=== PATIENT | male | born 1935 ===

== ENCOUNTER 2024-12-13 14:00 | Inpatient (IN) | payer OTHER ==
[~2024-12-13] VITALS: Ht 177.8 cm; Wt 84.8 kg
[2024-12-13 14:48] LABS: BASOPHILS ABSOLUTE AUTO 0.07 K/mm3 (0.00-0.23); BASOPHILS PERCENT AUTO 0 % (0-2); EOSINOPHILS PERCENT AUTO 0 % (0-6); Hematocrit 41.7 % (37.0-53.0); IMMATURE GRAN ABSOLUTE AUTO 0.18 K/mm3 (0.00-0.10); IMMATURE GRAN PERCENT AUTO 1 % (0-1); LYMPHOCYTES ABSOLUTE AUTO 0.63 K/mm3 (0.84-5.20); LYMPHOCYTES PERCENT AUTO 3 % (21-46); MONOCYTES PERCENT AUTO 11 % (4-13); Mean Corpuscular HGB 35.8 pg (26.0-34.0); Mean Corpuscular HGB Conc 33.6 g/dL (31.5-36.5); Mean Corpuscular Volume 107 fL (80-100); NEUTROPHILS ABSOLUTE AUTO 17.12 K/mm3 (1.96-9.15); NEUTROPHILS PERCENT AUTO 85 % (41-73); NRBC ABSOLUTE 0.03 K/mm3 (0.00-0.02); NRBC Auto 0.1 /100 WBC (0.0-0.2); Platelet Count 68 K/mm3 (150-400); RDW Coefficient Variation 16.4 % (11.7-14.2); RDW Standard Deviation 62.1 fL (35.1-46.3); Red Blood Cell Count 3.91 M/mm3 (4.30-5.90)
[2024-12-13 15:07] LABS: Albumin, Blood 3.8 g/dL (3.4-5.0); Albumin/Globulin Ratio 1.3 (0.8-1.8); Bilirubin, Total 3.2 mg/dL (0.1-1.0); Bun/Creatinine Ratio 26.6 (12.0-20.0); Creatinine, Blood 2.48 mg/dL (0.60-1.20); Potassium, Blood 5.1 mmol/L (3.5-5.5); Total Protein, Blood 6.8 g/dL (6.4-8.2)
[2024-12-13] MEDS ORDERED: Mag Hydrox/AL Hydrox/Simeth 30 ML UDC PO ONE ×2 (16:15→16:30)
[2024-12-13] MEDS ORDERED: Ondansetron HCl 2 MG / ML 2ML Vial IV ONE (16:30)
[2024-12-13 16:31] LABS: CORONAVIRUS COVID-19 AG Negative (NEGATIVE); INFLUENZA A AG Negative (NEGATIVE); INFLUENZA B AG Negative (NEGATIVE)
[2024-12-13 16:37] LABS: Source, Urine Clean Catch
[2024-12-13 16:42] LABS: Appearance, Urine Hazy (Clear); Bilirubin, Urine Neg (Neg); Blood, Urine 2+ (Neg); Color, Urine Yellow (P-Yellow); Glucose Qualitative, Urine Neg (Neg); Ketones, Urine 1+ (Neg); Leukocyte Esterase, Urine 1+ (Neg); Nitrite, Urine Neg (Neg); Protein, Urine 2+ (Neg); Specific Gravity, Urine 1.025 (1.003-1.022); Urobilinogen, Urine 2+ (Normal)
[2024-12-13 16:50] LABS: Amorphous Mod (0-Heavy); Bacteria Many /hpf; Mucus Light (0-Heavy); Red Blood Cells, Urine 0-2 /hpf (0-2); Squamous Epithelial Cells Rare /hpf (Few)
[2024-12-13] MEDS ORDERED: BREZTRI AEROS10.7 GM (16:50)
[2024-12-13] MEDS ORDERED: LIDO700A20 TOP (16:51)
[2024-12-13] MEDS ORDERED: METO50 PO (16:51)
[2024-12-13] MEDS ORDERED: Spironolactone25 MG PO (16:52)
[2024-12-13] MEDS ORDERED: LOSA50 PO (16:52)
[2024-12-13] MEDS ORDERED: OXYB5 PO (16:53)
[2024-12-13] MEDS ORDERED: Synthroid200 MCG PO (16:53)
[2024-12-13] MEDS ORDERED: AMLO10 PO (16:54)
[2024-12-13] MEDS ORDERED: TRAZ50 PO (16:54)
[2024-12-13] MEDS ORDERED: ZOCOR20 MG PO (16:54)
[2024-12-13] MEDS ORDERED: LORA10ER PO (16:54)
[2024-12-13] MEDS ORDERED: ELIQUIS2.5 MG PO (16:55)
[2024-12-13] MEDS ORDERED: TAMS.4ER PO (16:55)
[2024-12-13] MEDS ORDERED: Aspir 8181 MG PO (16:55)
[2024-12-13] MEDS ORDERED: FURO20 (16:56)
[2024-12-13] MEDS ORDERED: CefTRIAXone Sodium 1,000 MG in NS 100 ML IV ONE (17:20)
[2024-12-13] MEDS ORDERED: Ondansetron HCl 2 MG / ML 2ML Vial IV PRN (20:25)
[2024-12-13] MEDS ORDERED: FLU VACC TS2024-25(6MOS UP)/PF 45 MCG/0.5 ML SYRINGE IM SCH (20:25)
[2024-12-13] MEDS ORDERED: NS 1,000 ML IV SCH (20:25)
[2024-12-13 22:24] VITALS: BP 125/87
[2024-12-13] MEDS ORDERED: Magnesium Hydroxide Conc 10 ML UDC PO PRN (23:10)
[2024-12-13] MEDS ORDERED: TraZODone HCl 50 MG Tab PO SCH (23:10)
[2024-12-13] MEDS ORDERED: Melatonin 5 MG Tablet PO SCH (23:10)
[2024-12-13] MEDS ORDERED: Bisacodyl 10 MG Supp PR PRN (23:10)
[2024-12-14 04:47] VITALS: BP 115/83
[2024-12-14] MEDS ORDERED: Levothyroxine Sodium 0.1 MG Tab PO SCH (06:00)
--- NOTE | 2024-12-14 06:11 | NUR ---
SHIFT SUMMARY PT A&OX4 AND ANSWERS QUESTIONS APPROPRIATELY. PT ARRIVED ON UNIT AT 2217 VIA GURNEY AND WAS TRANSFERRED VIA SLIDESHEET UNTO THE BED. PT ORIENTED TO ROOM AND UNIT. PT RECEIVED SCHEDULED MEDICATIONS WITH NO ADVERSE EFFECTS. PT VSS, PT IS TACHYCARDIAC, PT ON CONTINUOUS TELEMETRY AND RUNNING AFIB. NO COMPLAINTS OF CP/PRESSURE OR SOB. NO ACUTE EVENTS AT THIS TIME. PT SPENT MOST OF SHIFT IN BED WITH EYES CLOSED AND RESPIRATIONS EVEN AND UNLABORED. PT REPOSITIONED INDEPENDENTLY. FALL PRECAUTIONS IN PLACE AND CALL LIGHT IN REACH.
[2024-12-14 06:14] LABS: BASOPHILS ABSOLUTE AUTO 0.06 K/mm3 (0.00-0.23); BASOPHILS PERCENT AUTO 0 % (0-2); EOSINOPHILS ABSOLUTE AUTO 0.02 K/mm3 (0.00-0.68); EOSINOPHILS PERCENT AUTO 0 % (0-6); Hematocrit 38.3 % (37.0-53.0); Hemoglobin 12.8 g/dL (13.5-17.5); IMMATURE GRAN ABSOLUTE AUTO 0.13 K/mm3 (0.00-0.10); IMMATURE GRAN PERCENT AUTO 1 % (0-1); LYMPHOCYTES ABSOLUTE AUTO 1.08 K/mm3 (0.84-5.20); LYMPHOCYTES PERCENT AUTO 6 % (21-46); MONOCYTES ABSOLUTE AUTO 1.78 K/mm3 (0.16-1.47); MONOCYTES PERCENT AUTO 9 % (4-13); Mean Corpuscular HGB 35.4 pg (26.0-34.0); Mean Corpuscular HGB Conc 33.4 g/dL (31.5-36.5); Mean Corpuscular Volume 106 fL (80-100); NEUTROPHILS ABSOLUTE AUTO 16.02 K/mm3 (1.96-9.15); NEUTROPHILS PERCENT AUTO 84 % (41-73); NRBC ABSOLUTE 0.03 K/mm3 (0.00-0.02); NRBC Auto 0.2 /100 WBC (0.0-0.2); Platelet Count 53 K/mm3 (150-400); RDW Standard Deviation 61.3 fL (35.1-46.3); Red Blood Cell Count 3.62 M/mm3 (4.30-5.90); White Blood Cell Count 19.09 K/mm3 (4.00-11.30)
[2024-12-14 06:39] LABS: Albumin, Blood 3.3 g/dL (3.4-5.0); Albumin/Globulin Ratio 1.4 (0.8-1.8); Bilirubin, Total 1.7 mg/dL (0.1-1.0); Calcium, Blood 9.5 mg/dL (8.5-10.1); Creatinine, Blood 2.56 mg/dL (0.60-1.20); Globulin, Blood 2.4 g/dL (2.2-4.0); Potassium, Blood 4.5 mmol/L (3.5-5.5); Total Protein, Blood 5.7 g/dL (6.4-8.2)
[2024-12-14 07:33] VITALS: BP 135/88
[2024-12-14] MEDS ORDERED: Lactated Ringer's 1,000 ML IV SCH (08:35)
[2024-12-14] MEDS ORDERED: Misc. Inhaler INH SCH (09:00)
[2024-12-14] MEDS ORDERED: Furosemide 20 MG Tab PO SCH (09:00)
[2024-12-14] MEDS ORDERED: Metoprolol Tartrate 25 MG Tab PO SCH (09:00)
[2024-12-14] MEDS ORDERED: Sennosides 8.6 MG Tab PO SCH (09:00)
[2024-12-14] MEDS ORDERED: Docusate Sodium 100 MG Cap PO SCH (09:00)
[2024-12-14] MEDS ORDERED: Apixaban 5 MG Tab PO SCH (09:00)
[2024-12-14] MEDS ORDERED: Aspirin 81 MG TabEC PO SCH (09:00)
[2024-12-14 15:30] VITALS: BP 119/70
[2024-12-14] MEDS ORDERED: Furosemide 10 MG / ML 2ML Vial IV ONE (17:00)
[2024-12-14 20:17] VITALS: BP 106/57
[2024-12-14] MEDS ORDERED: Tamsulosin HCl 0.4 MG Cap PO SCH (21:00)
[2024-12-14] MEDS ORDERED: CefTRIAXone Sodium 1,000 MG in NS 100 ML IV SCH (21:00)
--- NOTE | 2024-12-15 01:03 | NUR ---
Pt de-sated to 72 w/o cpap on. Nurse advised. Pt alert and oriented.
[2024-12-15 03:45] VITALS: BP 112/87
--- NOTE | 2024-12-15 05:28 | NUR ---
SHIFT SUMMARY A&0 x3, forgetful to situation , VSS, Continuous oximetry and sats were wdl until sleeping soundly then dropped into mid 80s , 02 applied at 2l/m via NC until RT arrived to place bipap-sats came up quickly -wore bipap approx 3 hrs until up to void then wanted bipap off due to runny nose, back on room air this morning and 02 sats in mid 90s
[2024-12-15 06:13] LABS: BASOPHILS ABSOLUTE AUTO 0.06 K/mm3 (0.00-0.23); BASOPHILS PERCENT AUTO 0 % (0-2); EOSINOPHILS ABSOLUTE AUTO 0.35 K/mm3 (0.00-0.68); EOSINOPHILS PERCENT AUTO 3 % (0-6); Hematocrit 38.6 % (37.0-53.0); Hemoglobin 12.8 g/dL (13.5-17.5); IMMATURE GRAN ABSOLUTE AUTO 0.12 K/mm3 (0.00-0.10); IMMATURE GRAN PERCENT AUTO 1 % (0-1); LYMPHOCYTES ABSOLUTE AUTO 0.98 K/mm3 (0.84-5.20); LYMPHOCYTES PERCENT AUTO 7 % (21-46); MONOCYTES ABSOLUTE AUTO 1.16 K/mm3 (0.16-1.47); MONOCYTES PERCENT AUTO 9 % (4-13); Mean Corpuscular HGB 35.9 pg (26.0-34.0); Mean Corpuscular HGB Conc 33.2 g/dL (31.5-36.5); Mean Corpuscular Volume 108 fL (80-100); NEUTROPHILS ABSOLUTE AUTO 10.87 K/mm3 (1.96-9.15); NEUTROPHILS PERCENT AUTO 80 % (41-73); NRBC ABSOLUTE 0.02 K/mm3 (0.00-0.02); NRBC Auto 0.1 /100 WBC (0.0-0.2); Platelet Count 63 K/mm3 (150-400); RDW Coefficient Variation 15.9 % (11.7-14.2); RDW Standard Deviation 62.3 fL (35.1-46.3); Red Blood Cell Count 3.57 M/mm3 (4.30-5.90); White Blood Cell Count 13.54 K/mm3 (4.00-11.30)
[2024-12-15 06:48] LABS: Albumin, Blood 3.2 g/dL (3.4-5.0); Albumin/Globulin Ratio 1.2 (0.8-1.8); Bilirubin, Total 1.1 mg/dL (0.1-1.0); Bun/Creatinine Ratio 29.2 (12.0-20.0); Calcium, Blood 8.9 mg/dL (8.5-10.1); Creatinine, Blood 2.09 mg/dL (0.60-1.20); Globulin, Blood 2.6 g/dL (2.2-4.0); Potassium, Blood 4.1 mmol/L (3.5-5.5); Total Protein, Blood 5.8 g/dL (6.4-8.2)
[2024-12-15 06:56] VITALS: BP 130/79
[2024-12-15 10:43] LABS: Base Excess Venous 7.5 mmol/L; Bicarbonate Venous 28.5 mmol/L (24.0-30.0); PCO2 Venous 64.2 mmHg (38-42); pH Blood Venous 7.33 (7.34-7.37)
[2024-12-15] MEDS ORDERED: Furosemide 10 MG/ML 4ML Vial IV ONE (14:00)
[2024-12-15 15:04] VITALS: BP 114/78
[2024-12-15 19:59] VITALS: BP 115/68
[2024-12-16 02:37] VITALS: BP 132/73
[2024-12-16 05:56] LABS: BASOPHILS ABSOLUTE AUTO 0.04 K/mm3 (0.00-0.23); BASOPHILS PERCENT AUTO 0 % (0-2); EOSINOPHILS ABSOLUTE AUTO 0.34 K/mm3 (0.00-0.68); EOSINOPHILS PERCENT AUTO 3 % (0-6); Hematocrit 35.7 % (37.0-53.0); Hemoglobin 11.7 g/dL (13.5-17.5); IMMATURE GRAN ABSOLUTE AUTO 0.08 K/mm3 (0.00-0.10); IMMATURE GRAN PERCENT AUTO 1 % (0-1); LYMPHOCYTES ABSOLUTE AUTO 0.84 K/mm3 (0.84-5.20); LYMPHOCYTES PERCENT AUTO 8 % (21-46); MONOCYTES ABSOLUTE AUTO 1.02 K/mm3 (0.16-1.47); MONOCYTES PERCENT AUTO 10 % (4-13); Mean Corpuscular HGB 35.1 pg (26.0-34.0); Mean Corpuscular HGB Conc 32.8 g/dL (31.5-36.5); Mean Corpuscular Volume 107 fL (80-100); NEUTROPHILS ABSOLUTE AUTO 7.88 K/mm3 (1.96-9.15); NEUTROPHILS PERCENT AUTO 77 % (41-73); Platelet Count 56 K/mm3 (150-400); RDW Coefficient Variation 15.9 % (11.7-14.2); RDW Standard Deviation 61.2 fL (35.1-46.3); Red Blood Cell Count 3.33 M/mm3 (4.30-5.90)
[2024-12-16 06:23] LABS: Bun/Creatinine Ratio 29.7 (12.0-20.0); Calcium, Blood 8.8 mg/dL (8.5-10.1); Creatinine, Blood 1.72 mg/dL (0.60-1.20); Potassium, Blood 3.7 mmol/L (3.5-5.5)
--- NOTE | 2024-12-16 06:46 | NUR ---
Rn shift summary: Patient is alert and oriented x3. He is a little forgetful after sleeping. He was getting dressed and wanting to go home at 0330, but reoriented quickly.Pt has crackles in left lung base. He has trace edema to saritha lower feet. He is on tele with afib rate 84. He c/o constipation, states he has not had a BM since admit on the . MOM given . No stool yet this shift. Pt does not tolerate our CPAP mask, he slept with O2 2liters all night, sats good on cont o2 sat monitor 97-98%. RA this am. Call light in reach. He does stand at bedside to void in urinal. Needs SBA. Plan is unknown at this time.
[2024-12-16] MEDS ORDERED: Empagliflozin 10 MG TAB PO SCH (08:00)
[2024-12-16] MEDS ORDERED: Polyethylene Glycol 3350 17 gm PO ONE (08:00)
[2024-12-16] MEDS ORDERED: Spironolactone 25 MG Tab PO SCH (08:00)
[2024-12-16] MEDS ORDERED: Polyethylene Glycol 3350 17 gm PO PRN (08:00)
[2024-12-16 08:20] VITALS: BP 128/54
[2024-12-16] MEDS ORDERED: Furosemide 10 MG/ML 4ML Vial IV SCH (09:00)
[2024-12-16] MEDS ORDERED: Furosemide 10 MG / ML 2ML Vial IV SCH (09:00)
[2024-12-16] MEDS ORDERED: Spironolactone 12.5 MG TAB PO SCH (09:00)
[2024-12-16] MEDS ORDERED: Metoprolol Succinate 50 MG TABCR PO SCH (09:00)
--- NOTE | 2024-12-16 11:07 | NUR ---
TERE IS A ONE PERSON ASSIST, HE USES A WALKER TO STAND AND USE THE URINAL. OUT OF BED FOR BREAKFAST, SITTING IN THE CHAIR. HE AMBULATED WITH PT IN THE HALLWAY. HE CALLS APPROPRIATELY FOR HELP VIA THE CALL LIGHT. 2LITERS OF OXYGEN PER NC. SOME CONFUSION NOTED WHEN ASKED WHERE HE LIVES, HE STATED [place], [place], AND THEN HE STATED THAT [place] WAS "[address] [place] [place]", BUT THAT IT WAS IN [facility]. HE STATED THAT ONE YEAR AGO HE MOVED TO A PROPERTY WITH HIS SON AND LIVES IN A TRAILER ON THEIR PROPERTY. OTHER THAN THAT, HE IS ALERT AND ORIENTED X 4.
[2024-12-16] MEDS ORDERED: Ampicillin Sod 2,000 MG in NS 100 ML IV SCH (14:00)
[2024-12-16 15:32] VITALS: BP 112/71
[2024-12-16 19:56] VITALS: BP 108/61
--- NOTE | 2024-12-16 20:15 | NUR ---
TERE IS A&O X3, SLIGHTLY FORGETFUL TO HIS OWN LIMITATIONS. HE DOES USE THE CALL LIGHT FOR ASSISTANCE WITH THE URINAL, SOMETIMES. HE IS A ONE PERSON SBA WITH [facility] FOR USING THE URINAL. EATS MEALS IN THE CHAIR. VERY PLEASANT. WORKED WITH PT TODAY. VISITED WITH HIS SON, JESSI. JESSI SPOKE TO DR. 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 TERE TAKES HIS PILLS WHOLE WITH WATER. USES 2LPM VIA NC, BASELINE IS ROOM AIR. LUNG SOUNDS: CLEAR, WITH CRACKLES IN THE LEFT LOWER BASE. BLE EDEMA. AGGRESSIVE DIURESIS, WITH SMALL FREQUENT VOIDS OF 100MLS DARK [place] URINE. OCC INCONTINENCE.
[2024-12-17 00:27] VITALS: BP 133/82
[2024-12-17 04:43] VITALS: BP 124/71
--- NOTE | 2024-12-17 05:37 | NUR ---
SUMMARY: PT A/OX3-4, CALLS APPROPRIATELY TO SPECIFY NEEDS BUT IS FORGETFULL AT TIMES AND UNDERESTIMATES LIMITATIONS. BED ALARM IS ON FOR FALL RISK AND HE USES 1PA W/URINAL AND FWW TO BR. HE REMAINS ON 2L O2 VIA NC AND HASN'T BEEN ABLE TO TOLERATE HOSPITAL'S CPAP MACHINE. INTERMITTENT CRACKLES AUSCULTATED TO L.LOWER LOBE. PT IS ON TELEMETRY AND IS AFIB AT 90'S-100'S BPM. TRACE EDEMA TO BLE'S. IV ABX RECEIVED THEN SL'D. NO ACUTE CHANGES, VSS/AFEBRILE. WCTM AND REPORT TO DAY RN.
[2024-12-17 07:27] LABS: BASOPHILS ABSOLUTE AUTO 0.05 K/mm3 (0.00-0.23); BASOPHILS PERCENT AUTO 1 % (0-2); EOSINOPHILS ABSOLUTE AUTO 0.23 K/mm3 (0.00-0.68); EOSINOPHILS PERCENT AUTO 2 % (0-6); Hematocrit 38.8 % (37.0-53.0); Hemoglobin 12.6 g/dL (13.5-17.5); IMMATURE GRAN ABSOLUTE AUTO 0.08 K/mm3 (0.00-0.10); IMMATURE GRAN PERCENT AUTO 1 % (0-1); LYMPHOCYTES ABSOLUTE AUTO 0.85 K/mm3 (0.84-5.20); LYMPHOCYTES PERCENT AUTO 8 % (21-46); MONOCYTES ABSOLUTE AUTO 1.09 K/mm3 (0.16-1.47); MONOCYTES PERCENT AUTO 10 % (4-13); Mean Corpuscular HGB 35.4 pg (26.0-34.0); Mean Corpuscular HGB Conc 32.5 g/dL (31.5-36.5); Mean Corpuscular Volume 109 fL (80-100); NEUTROPHILS ABSOLUTE AUTO 8.41 K/mm3 (1.96-9.15); NEUTROPHILS PERCENT AUTO 79 % (41-73); Platelet Count 61 K/mm3 (150-400); RDW Standard Deviation 61.9 fL (35.1-46.3); Red Blood Cell Count 3.56 M/mm3 (4.30-5.90); White Blood Cell Count 10.71 K/mm3 (4.00-11.30)
[2024-12-17 07:43] LABS: Mean Platelet Volume 13.7 fL (9.1-12.4)
[2024-12-17 07:46] LABS: Bun/Creatinine Ratio 28.7 (12.0-20.0); Creatinine, Blood 1.43 mg/dL (0.60-1.20)
[2024-12-17 07:59] VITALS: BP 132/63
[2024-12-17 12:52] VITALS: BP 115/85
[2024-12-17 14:45] VITALS: BP 113/62
[2024-12-17] MEDS ORDERED: FURO40 PO (17:21)
[2024-12-17] MEDS ORDERED: AMOCLA875 PO (17:21)
[2024-12-17] MEDS ORDERED: MELATONIN5 M1 PO (17:22)
[2024-12-17] MEDS ORDERED: JARDIANCE10 MG PO (17:22)
[2024-12-17] MEDS ORDERED: VISBIOME 112.51 EACH PO (17:25)
--- NOTE | 2024-12-17 18:35 | NUR ---
PT DISCHARGED TO HOME WITH [place]. PT AND SON INSTRUCTED AND PROVIDED WITH DISCHARGE INSTRUCTIONS. MEDICATIONS FAXED TO [facility]. ALL VALUABLED RETURNED AND SENT HOME WITH THE PT. PT ON RA THROUGHOUT THIS SHIFT W/O SOB WITH AMBULATION.
== END 2024-12-17 18:33 | disposition home health service (06) | DRG 871 ==
LOC: ER 14:00 → MEDS 20:23 → ERHOLD 20:23 → MEDS 22:17 → ENPENDDIS 12-17 16:57 → MEDS 12-17 18:33
PROVIDERS: Emergency Medicine; Family Medicine; Student in an Organized Health Care Education/Training Program; ADMIT Internal Medicine
DX: A41.81 Sepsis due to Enterococcus (principal); I50.43 Acute on chronic combined systolic (congestive) and diastolic (congestive) heart failure; J96.01 Acute respiratory failure with hypoxia; J96.02 Acute respiratory failure with hypercapnia; N17.9 Acute kidney failure, unspecified; M62.82 Rhabdomyolysis; I48.20 Chronic atrial fibrillation, unspecified; N39.0 Urinary tract infection, site not specified; E87.20 Acidosis, unspecified; D69.6 Thrombocytopenia, unspecified; I11.0 Hypertensive heart disease with heart failure; N40.0 Benign prostatic hyperplasia without lower urinary tract symptoms; I08.2 Rheumatic disorders of both aortic and tricuspid valves; I27.20 Pulmonary hypertension, unspecified; R65.20 Severe sepsis without septic shock; Z79.890 Hormone replacement therapy; Z79.899 Other long term (current) drug therapy; Z79.82 Long term (current) use of aspirin; Z79.01 Long term (current) use of anticoagulants
CPT/HCPCS: 36415; 71046; 73562-LT; 74177; 76705; 80048; 80053; 81001; 82550; 82803; 83605; 83690; 83880; 84145; 84484; 85025; 87077; 87086; 87186; 87428-QW; 93005; 93010; 93306; 94660; 94760; 94762; 96365-59; 96375; 97110; 97112; 97116; 97162; 97530; 99285-25; A9270; J0290; J0696; J1940; J2405; J7030; Q9967